=== PATIENT | female | born 1995 | race Caucasian/White ===

== ENCOUNTER 2017-11-09 15:47 | Emergency (ER) | payer OTHER ==
[~2017-11-09] VITALS: Ht 154.9 cm; Wt 82.6 kg
[2017-11-09 16:48] LABS: HEMATOCRIT 38.6 % (36.0-46.0); HEMOGLOBIN 13.4 G/DL (11.9-15.5); MCH 31.1 PG (29.0-34.0); MCHC 34.7 G/DL (30.0-36.0); MCV 89.6 FL (83-99); PLATELET COUNT 254 K/uL (156-360); RBC DIS.WIDTH-CV 11.6 % (11.8-14.6); RBC DIS.WIDTH-SD 37.8 % (39-53); RED BLOOD COUNT 4.31 M/uL (3.80-5.20); WHITE BLOOD COUNT 10.1 K/uL (4.1-10.2)
[2017-11-09 16:52] LABS: CHLORIDE 110 mEq/L (99-109); POTASSIUM 3.8 mEq/L (3.7-5.4); SODIUM 143 mEq/L (136-147)
[2017-11-09 16:54] LABS: GLUCOSE 78 mg/dL (70-99)
[2017-11-09 16:56] LABS: TOTAL BILIRUBIN 0.7 mg/dL (0.0-1.0)
[2017-11-09 16:58] LABS: ALKALINE PHOSPHATASE 101 IU/L (3-129); CREATININE 0.7 mg/dL (0.6-1.3)
[2017-11-09 16:59] LABS: UREA NITROGEN (BUN) 9 mg/dL (9-23)
[2017-11-09 17:00] LABS: AST (GOT) 13 IU/L (2-34)
[2017-11-09 17:01] LABS: ALT (GPT) 11 IU/L (3-49); GFR ESTIMATE (CALCULATED) > 59 mL/min/
[2017-11-09 17:08] LABS: QUANTITATIVE HCG < 4.0 MIU/ML
[2017-11-09 18:54] LABS: APPEARANCE CLOUDY ((CLEAR)); BILIRUBIN NEGATIVE; BLOOD LARGE; GLUCOSE (STRIP) NEGATIVE; KETONES NEGATIVE; LEUKOCYTES TRACE; NITRITE NEGATIVE; PROTEIN (STRIP) 100; SPECIFIC GRAVITY 1.014 (1.000-1.030); UROBILINOGEN 0.2 MG/DL (0.2-1.0)
[2017-11-09 18:57] LABS: COLOR RED ((YELLOW))
[2017-11-09 19:21] LABS: RED BLOOD CELLS TNTC /HPF (0-5)
[2017-11-09 19:22] LABS: BACTERIA RARE /HPF; EPITHELIAL CELLS 1+ /HPF; MUCUS NONE SEEN /LPF; UCUL ADDED? YES; WHITE BLOOD CELLS 0-5 /HPF (0-5)
[2017-11-09 20:27] VITALS: BP 128/85
== END 2017-11-09 20:29 | disposition home or self-care (01) ==
LOC: EME 15:47
DX: O72.1 Other immediate postpartum hemorrhage (principal); O90.89 Other complications of the puerperium, not elsewhere classified; R51 Headache; F17.200 Nicotine dependence, unspecified, uncomplicated; Z88.0 Allergy status to penicillin; Z88.1 Allergy status to other antibiotic agents
CPT/HCPCS: 76856; 80053; 81003; 84702; 85027; 87086; 99281; 99284